=== PATIENT | female | born 1980 | race Two or more races ===

== ENCOUNTER 2019-08-18 17:09 | Emergency (ER) | payer BC ==
[~2019-08-18] VITALS: Ht 170.2 cm; Wt 65.8 kg
[2019-08-18 17:40] VITALS: BP 164/101
--- NOTE | 2019-08-18 18:30 | NUR ---
UNABLE TO DEPART IN [facility].
== END 2019-08-18 18:30 | disposition home or self-care (01) ==
LOC: ER 17:13
DX: J06.9 Acute upper respiratory infection, unspecified (principal); I10 Essential (primary) hypertension; Z88.0 Allergy status to penicillin

== ENCOUNTER 2020-09-06 11:51 | Emergency (ER) | payer BC ==
[~2020-09-06] VITALS: Ht 167.6 cm; Wt 63.5 kg
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
[2020-09-06] MEDS ORDERED: LIDOCAINE MPF 1%-EPI 1:200,000 30 ML VIAL IJ ONE (12:22)
[2020-09-06] MEDS ORDERED: TDAP [DIPH/PERTUSSIS/TET] 0.5 ML VIAL IM ONE ×2 (12:30→13:01)
--- NOTE | 2020-09-06 12:41 | NUR ---
DR. BO AT BEDSIDE.
--- NOTE | 2020-09-06 14:56 | NUR ---
Lac repair done by Dr. Brooke. Stitches intact. Patient discharged to home in stable condition. Written and verbal after care instructions given. Patient verbalizes understanding of instruction.
[2020-09-06 14:57] VITALS: BP 159/108
== END 2020-09-06 14:58 | disposition home or self-care (01) ==
LOC: ER 12:00
DX: O9A.211 Injury, poisoning and certain other consequences of external causes complicating pregnancy, first trimester (principal); S01.511A Laceration without foreign body of lip, initial encounter; I10 Essential (primary) hypertension; Z88.0 Allergy status to penicillin; Z3A.01 Less than 8 weeks gestation of pregnancy; V49.49XA Driver injured in collision with other motor vehicles in traffic accident, initial encounter; Y93.89 Activity, other specified; Y92.413 State road as the place of occurrence of the external cause; Y99.8 Other external cause status
CPT/HCPCS: 12014; 36415; 70450; 70486; 72125; 76805; 84702; 84703; 90471; 90715; 99285; A6403; J3490